=== PATIENT | female | born 1945 | race Caucasian/White ===

== ENCOUNTER → 2018-05-26 | Outpatient (CLI) | payer MEDICARE | END | disposition home or self-care (01) | LOC: CFH 06:59 | PROVIDERS: ATTEND Internal Medicine Cardiovascular Disease | DX: I35.1 Nonrheumatic aortic (valve) insufficiency (principal); I35.8 Other nonrheumatic aortic valve disorders; I10 Essential (primary) hypertension; Z85.820 Personal history of malignant melanoma of skin | CPT/HCPCS: 93306 ==

== ENCOUNTER 2019-09-28 09:03 | Outpatient (CLI) | payer MEDICARE | END 2019-09-28 23:59 | disposition home or self-care (01) | LOC: CFH 09:03 | PROVIDERS: ATTEND Registered Nurse | DX: I35.1 Nonrheumatic aortic (valve) insufficiency (principal); I48.91 Unspecified atrial fibrillation | CPT/HCPCS: 93306 ==

== ENCOUNTER → 2021-03-20 | Outpatient (CLI) | payer MEDICARE | END | disposition home or self-care (01) | LOC: CFH 08:12 | PROVIDERS: ATTEND Internal Medicine Cardiovascular Disease | DX: E78.00 Pure hypercholesterolemia, unspecified (principal) | CPT/HCPCS: 75571 ==